=== PATIENT | female | born 1990 | race Asian ===

== ENCOUNTER 2018-05-29 17:22 | Emergency (ER) | payer OTHER ==
[~2018-05-29] VITALS: Ht 165.1 cm; Wt 61.2 kg
[2018-05-29 17:25] VITALS: BP_SYST 128
--- NOTE | 2018-05-29 17:30 | NUR ---
Patient to ER [facility] [place] [address] [facility] for evaluation. Side rails up. Report given to Edwin GONZALES.
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
--- NOTE | 2018-05-29 18:25 | NUR ---
ER at bedside examining patient.
[2018-05-29] MEDS ORDERED: IBUPROFEN 800 MG TABLET PO ONE (18:45)
[2018-05-29 19:00] VITALS: BP_SYST 120
--- NOTE | 2018-05-29 19:00 | NUR ---
Patient given written and verbal discharge instructions and verbalizes understanding. ER MD discussed with patient the results and treatment provided. Patient in stable condition. ID arm band removed. Rx of Motrin given. Patient educated on pain management and to follow up with PMD. Pain Scale 2. Opportunity for questions provided and answered. Medication side effect fact sheet provided. Patient left ER in no acute distress, able to ambulate without difficulty with slow, steady gait. No adverse reaction noted to medication.
== END 2018-05-29 19:00 | disposition home or self-care (01) ==
LOC: SED 17:22
DX: S53.401A Unspecified sprain of right elbow, initial encounter (principal); S29.012A Strain of muscle and tendon of back wall of thorax, initial encounter; R03.0 Elevated blood-pressure reading, without diagnosis of hypertension; V43.52XA Car driver injured in collision with other type car in traffic accident, initial encounter; Z88.0 Allergy status to penicillin; Y93.89 Activity, other specified; Y92.410 Unspecified street and highway as the place of occurrence of the external cause; Y99.8 Other external cause status
CPT/HCPCS: 81025; 99282